=== PATIENT | female | born 1985 | race Two or more races ===

== ENCOUNTER 2019-02-28 12:49 | Emergency (ER) ==
[~2019-02-28] VITALS: Ht 157.5 cm; Wt 69.2 kg
[2019-02-28 13:21] LABS: BASOPHILS # (AUTO) 0.04 x10^3/uL (0-0.1); BASOPHILS % (AUTO) 1 % (0-1); EOSINOPHILS # (AUTO) 0.25 x10^3/uL (0-0.4); EOSINOPHILS % (AUTO) 6 % (1-7); LYMPHOCYTES # (AUTO) 1.66 x10^3/uL (1-3.4); LYMPHOCYTES % (AUTO) 39 % (22-44); MD NO; MEAN CORPUSCULAR HEMOGLOBIN 28.8 pg (27.0-34.8); MEAN CORPUSCULAR HGB CONC 33.6 g/dL (32.4-35.8); MEAN CORPUSCULAR VOLUME 85.8 fL (80-100); MEAN PLATELET VOLUME 6.2 fL (7.4-10.4); MONOCYTES # (AUTO) 0.37 x10^3/uL (0.2-0.8); MONOCYTES % (AUTO) 9 % (2-9); NEUTROPHILS # (AUTO) 1.94 x10^3/uL (1.8-6.8); NEUTROPHILS % (AUTO) 46 % (42-75); PLATELET COUNT 359 x10^3/uL (130-400); RED BLOOD COUNT 5.03 x10^6/uL (3.82-5.3); RED CELL DISTRIBUTION WIDTH 12.5 % (9.6-15.2)
[2019-02-28 13:34] LABS: ALANINE AMINOTRANSFERASE 36 U/L (12-78); ALBUMIN 4.4 g/dL (3.4-5.0); ANION GAP 5 mmol/L (5-15); CALCIUM 9.6 mg/dL (8.5-10.1); CHLORIDE 109 mmol/L (98-107); CREATININE 0.78 mg/dL (0.55-1.02)
[2019-02-28 13:39] LABS: ALKALINE PHOSPHATASE 50 U/L (45-117); BILIRUBIN,TOTAL 0.4 mg/dL (0.2-1.0); TOTAL PROTEIN 8.7 g/dL (6.4-8.2)
[2019-02-28] MEDS ORDERED: inhaler (13:48)
--- NOTE | 2019-02-28 14:04 | NUR ---
PT TO ED FOR VB SINCE LMP . PT STATES VB IS NOW SMALL TO SCANT NAD LIGHT PINK IN COLOR, BUT HAS NOT STOPPED SINCE LMP. PT STATES SATURATING 1-2 PADS PER DAY. PT CONNECTED TO MONITORS. VSS. NO NEEDS EXPRESSED. SOY DOLAN TO BS. ORDERS RECEIVED. AWAITING US.
[2019-02-28 14:51] LABS: MICROSCOPIC AUTO
[2019-02-28 14:54] LABS: CULTURE INDICATED? NO
[2019-02-28 15:03] VITALS: BP 99/71
--- NOTE | 2019-02-28 15:03 | NUR ---
pt resting in room wtih family at bs. vss. no needs expressed. call light within reach. awaiting us.
--- NOTE | 2019-02-28 15:04 | NUR ---
pt to us.
--- NOTE | 2019-02-28 15:32 | NUR ---
pt back from us.
== END 2019-02-28 22:33 | disposition home or self-care (01) ==
LOC: ED 15:55
DX: N92.4 Excessive bleeding in the premenopausal period (principal)
CPT/HCPCS: 36415; 76830; 80053; 81001; 84703; 85025; 99284

== ENCOUNTER → 2019-07-28 | Outpatient (CLI) | payer BC ==
[~2019-07-28] MED LIST: inhaler
== END | disposition home or self-care (01) ==
LOC: CFH 10:18
PROVIDERS: ATTEND Internal Medicine
DX: R10.10 Upper abdominal pain, unspecified (principal)
CPT/HCPCS: 76705